=== PATIENT | male | born 1950 | race Caucasian/White ===

== ENCOUNTER → 2024-08-31 06:56 | Outpatient (REF) | payer MEDICARE, BC, SELFPAY | LOC: RAD 06:56 | PROVIDERS: ATTENDING PHYSICIAN Physician Assistant; FAMILY PHYSICIAN Family Medicine | DX: E03.9 Hypothyroidism, unspecified (principal); C73 Malignant neoplasm of thyroid gland; Z85.850 Personal history of malignant neoplasm of thyroid | CPT/HCPCS: 76536 ==

== ENCOUNTER → 2024-11-24 14:51 | Outpatient (REF) | payer MEDICARE, BC, SELFPAY | LOC: RAD 14:51 | PROVIDERS: ATTENDING PHYSICIAN Family Medicine | DX: M50.90 Cervical disc disorder, unspecified, unspecified cervical region (principal) | CPT/HCPCS: 72052 ==

== ENCOUNTER → 2024-12-04 10:09 | Outpatient (REF) | payer MEDICARE, BC, SELFPAY | LOC: RCS 10:09 | PROVIDERS: ATTENDING PHYSICIAN Family Medicine | DX: R00.2 Palpitations (principal) | CPT/HCPCS: 93225; 93226 ==

== ENCOUNTER → 2025-03-16 15:42 | Outpatient (REF) | payer MEDICARE, BC, SELFPAY | LOC: DHSLP 15:42 | PROVIDERS: ATTENDING PHYSICIAN Internal Medicine Critical Care Medicine; FAMILY PHYSICIAN Family Medicine | DX: G47.33 Obstructive sleep apnea (adult) (pediatric) (principal) | CPT/HCPCS: 95800 ==